=== PATIENT | female | born 1975 | race Caucasian/White ===

== ENCOUNTER 2020-10-19 09:48 | Day surgery (SDC) | payer BC ==
[~2020-10-19 09:48] MED LIST: Albuterol 0.083% 2.5 MG/3 ML Neb Soln NEB PRN; HYDROmorphone 1 MG/ML Syringe IVPUSH PRN; Lidocaine 2% 100 MG/5 ML Syringe ONE; Metoclopramide 10 MG/2 ML SDV IVPUSH PRN; Morphine 2 MG/ML SYRINGE IVPUSH PRN; Naloxone 0.4 MG/ML Syringe IVPUSH PRN; Ondansetron 4 MG/2 ML SDV IVPUSH PRN; Ondansetron 4 MG/2 ML SDV ONE; Sodium Chloride 0.9% 10 ML SDV IV PRN; Sodium Chloride 0.9% 10 ML Syringe FLUSH PRN; Sodium Chloride 0.9% 2.5 ML Syringe FLUSH PRN; fentaNYL 100 MCG/2 ML SDV IVPUSH PRN; fentaNYL 100 MCG/2 ML SDV ONE
[2020-10-19] MEDS ORDERED: propofoL 100 ML ONE (09:54)
[2020-10-19 10:59] LABS: CARBON DIOXIDE,CO2 28.6 mmol/L (21.0-32.0); POTASSIUM,K 4.2 mmol/L (3.5-5.1)
[2020-10-19] MEDS ORDERED: Scopolamine 1.5 MG Transdermal Patch ONE (11:19)
[2020-10-19] MEDS ORDERED: Dexamethasone 4 MG/ML 5 ML MDV ONE (13:58)
[2020-10-19] MEDS ORDERED: Ketorolac 30 MG/ML SDV ONE (14:22)
[2020-10-19] MEDS ORDERED: Acetaminophen/oxyCODONE 325-5 MG Tab PO PRN (14:59)
--- NOTE | 2020-10-19 15:08 | PCM.POSTAN ---
POST ANESTHESIA ASSESSMENT - MENTAL STATUS Mental Status: Alert, Oriented - VITAL SIGNS Vital Signs: Last Vital Signs Temp 97.9 F 10/19/20 11:22 Pulse 75 10/19/20 11:22 Resp 16 10/19/20 11:22 BP 140/80 10/19/20 11:22 Pulse Ox 100 10/19/20 11:22 - RESPIRATORY Respiratory Status: Respiratory Rate WNL, Airway Patent, O2 Saturation Stable - CARDIOVASCULAR CV Status: Pulse Rate WNL, Blood Pressure Stable - GASTROINTESTINAL GI Status: No Symptoms - POST OP HYDRATION Hydration Status: Adequate & Stable
--- NOTE | 2020-10-19 15:08 | PCM.PREANE ---
Preanesthetic Assessment - Anesthesia/Transfusion/Family Hx Anesthesia History: Prior Anesthesia Without Reaction Transfusion History: No Prior Transfusion(s) - Review of Systems General: No Symptoms Pulmonary: No Symptoms Cardiovascular: No Symptoms Gastrointestinal: No Symptoms Neurological: No Symptoms Other: Reports: None - Physical Assessment NPO Status Date: 10/19/20 NPO Status Time: 00:00 Vital Signs: Last Vital Signs Temp 97.9 F 10/19/20 11:22 Pulse 75 10/19/20 11:22 Resp 16 10/19/20 11:22 BP 140/80 10/19/20 11:22 Pulse Ox 100 10/19/20 11:22 Height: 5 ft 2 in Weight: 173 lb ASA Class: 3 Mental Status: Alert & Oriented x3 Airway Class: Mallampati = 2 Dentition: Reports: Normal Dentition ROM/Head Extension: Full Lungs: Clear to Auscultation, Normal Respiratory Effort Cardiovascular: Regular Rate, Regular Rhythm - Lab Values: Laboratory Last Values WBC 6.47 K/uL (4.0-11.0) 10/19/20 10:08 RBC 4.50 M/uL (4.30-5.90) 10/19/20 10:08 Hgb 12.7 g/dL (12.0-16.0) 10/19/20 10:08 Hct 38.2 % (36.0-46.0) 10/19/20 10:08 MCV 84.9 fL (80.0-98.0) 10/19/20 10:08 MCH 28.2 pg (27.0-32.0) 10/19/20 10:08 MCHC 33.2 g/dL (31.0-37.0) 10/19/20 10:08 RDW Std Deviation 42.2 fl (28.0-62.0) 10/19/20 10:08 RDW Coeff of Shailesh 14 % (11.0-15.0) 10/19/20 10:08 Plt Count 315 K/uL (150-400) 10/19/20 10:08 MPV 8.70 fL (7.40-12.00) 10/19/20 10:08 Nucleated RBC % 0.0 /100WBC 10/19/20 10:08 Nucleated RBCs # 0 K/uL 10/19/20 10:08 Sodium 139 mmol/L (136-145) 10/19/20 10:08 Potassium 4.2 mmol/L (3.5-5.1) 10/19/20 10:08 Chloride 104 mmol/L (98-107) 10/19/20 10:08 Carbon Dioxide 28.6 mmol/L (21.0-32.0) 10/19/20 10:08 BUN 15 mg/dL (7.0-18.0) 10/19/20 10:08 Creatinine 1.1 mg/dL (0.6-1.0) H 10/19/20 10:08 Est Cr Clr Drug Dosing 50.00 mL/min 10/19/20 10:08 Estimated GFR (MDRD) 53.2 ml/min 10/19/20 10:08 Glucose 96 mg/dL (74-106) 10/19/20 10:08 Calcium 8.2 mg/dL (8.5-10.1) L 10/19/20 10:08 Urine HCG, Qual NEGATIVE (NEGATIVE) 10/19/20 10:15 SARS-CoV-2 RNA (DENA) NEGATIVE (NEGATIVE) 10/19/20 09:55 Blood Type A POSITIVE 10/19/20 10:13 Antibody Screen NEGATIVE 10/19/20 10:13 - Allergies Allergies/Adverse Reactions: Allergies Allergy/AdvReac Type Severity Reaction Status Date / Time clindamycin Allergy Rash Verified 10/15/20 08:42 sulfamethoxazole Allergy Rash Verified 10/15/20 08:42 [From Bactrim] trimethoprim [From Bactrim] Allergy Rash Verified 10/15/20 08:42 - Acknowledgements Anesthesia Type Planned: General Anesthesia Pt an Appropriate Candidate for the Planned Anesthesia: Yes Alternatives and Risks of Anesthesia Discussed w Pt/Guardian: Yes Pt/Guardian Understands and Agrees with Anesthesia Plan: Yes PreAnesthesia Questionnaire HEENT History: Reports: Other (See Below) Other HEENT History: wears glasses Cardiovascular History: Reports: Hypertension Respiratory History: Reports: None Gastrointestinal History: Reports: GERD Genitourinary History: Reports: UTI, Recurrent [employer] History: Reports: Dysfunctional Uterine Bleeding, Musculoskeletal History: Reports: None Neurological History: Reports: Migraines Psychiatric History: Reports: Anxiety, Depression Endocrine/Metabolic History: Reports: Obesity/BMI 30+ Hematologic History: Reports: None Immunologic History: Reports: None Oncologic (Cancer) History: Reports: None Dermatologic History: Reports: None - Past Surgical History Head Surgeries/Procedures: Reports: None HEENT Surgical History: Reports: Cataract Surgery Cardiovascular Surgical History: Reports: None Respiratory Surgical History: Reports: None GI Surgical History: Reports: Cholecystectomy Female Surgical History: Reports: Tubal Ligation Endocrine Surgical History: Reports: None Neurological Surgical History: Reports: None Musculoskeletal Surgical History: Reports: None Oncologic Surgical History: Reports: None Dermatological Surgical History: Reports: None - SUBSTANCE USE Tobacco Use Status *Q: Never Tobacco User - HOME MEDS Home Medications: Home Meds Calcium Carbonate [Tums] 1 tab.chew CHEW ASDIRECTED PRN 10/15/20 [History] Olmesartan [Benicar] 10 mg PO DAILY 10/15/20 [History] - CURRENT (IN HOUSE) MEDS Current Meds: Current Medications Albuterol (Albuterol 0.083% 2.5 Mg/3 Ml Neb Soln) 2.5 mg NEB ONETIME PRN PRN Reason: Wheezing Droperidol (Droperidol 5 Mg/2 Ml Sdv) 0.625 mg IVPUSH ONETIME PRN PRN Reason: Nausea/Vomiting Fentanyl (Fentanyl 100 Mcg/2 Ml Sdv) 50 mcg IVPUSH Q5M PRN PRN Reason: Pain (mild 1-3) Hydromorphone HCl (Hydromorphone 1 Mg/Ml Syringe) 1 mg IVPUSH Q10M PRN PRN Reason: Pain (moderate 4-6) Metoclopramide HCl (Metoclopramide 10 Mg/2 Ml Sdv) 10 mg IVPUSH ONETIME PRN PRN Reason: Nausea/Vomiting Morphine Sulfate (Morphine 2 Mg/Ml Syringe) 2 mg IVPUSH Q10M PRN PRN Reason: Pain (severe 7-10) Naloxone HCl (Naloxone 0.4 Mg/Ml Syringe) 0.1 mg IVPUSH ASDIRECTED PRN PRN Reason: Respiratory Depression Ondansetron HCl (Ondansetron 4 Mg/2 Ml Sdv) 4 mg IVPUSH ONETIME PRN PRN Reason: Nausea/Vomiting Oxycodone/Acetaminophen (Acetaminophen/Oxycodone 325-5 Mg Tab) 1 tab PO Q4H PRN PRN Reason: Pain Sodium Chloride (Sodium Chloride 0.9% 10 Ml Syringe) 10 ml FLUSH ASDIRECTED PRN PRN Reason: Keep Vein Open Sodium Chloride (Sodium Chloride 0.9% 2.5 Ml Syringe) 2.5 ml FLUSH ASDIRECTED PRN PRN Reason: Keep Vein Open Sodium Chloride (Sodium Chloride 0.9% 10 Ml Sdv) 10 ml IV ASDIRECTED PRN PRN Reason: IV Use Discontinued Medications Dexamethasone (Dexamethasone 4 Mg/Ml 5 Ml Mdv) Confirm Administered Dose 20 mg .ROUTE .[employer] ONE Stop: 10/19/20 13:59 Fentanyl (Fentanyl 100 Mcg/2 Ml Sdv) Confirm Administered Dose 100 mcg .ROUTE .[employer] ONE Stop: 10/19/20 09:06 Propofol (Diprivan 100 Ml) Confirm Administered Dose 100 mls @ as directed .ROUTE .[employer] ONE Stop: 10/19/20 09:55 Ketorolac Tromethamine (Ketorolac 30 Mg/Ml Sdv) Confirm Administered Dose 30 mg .ROUTE .[employer] ONE Stop: 10/19/20 14:23 Lidocaine HCl (Lidocaine 2% 100 Mg/5 Ml Syringe) Confirm Administered Dose 100 mg .ROUTE .[employer] ONE Stop: 10/19/20 09:05 Miscellaneous Medication (Phenylephrine Hcl In 0.9% Nacl 1 Mg/10 Ml Syringe) Confirm Administered Dose 1 mg .ROUTE .[employer] ONE Stop: 10/19/20 14:36 Ondansetron HCl (Ondansetron 4 Mg/2 Ml Sdv) Confirm Administered Dose 4 mg .ROUTE .[employer] ONE Stop: 10/19/20 09:05 Ondansetron HCl (Ondansetron 4 Mg/2 Ml Sdv) Confirm Administered Dose 4 mg .ROUTE .[employer] ONE Stop: 10/19/20 09:05 Scopolamine (Scopolamine 1.5 Mg Transdermal Patch) Confirm Administered Dose 1.5 mg .ROUTE .[employer] ONE Stop: 10/19/20 11:20
--- NOTE | 2020-10-19 15:09 | PCM48HPAN ---
Post Anesthesia Note - EVALUATION WITHIN 48HRS OF ANESTHETIC Vital Signs in Normal Range: Yes Patient Participated in Evaluation: Yes Respiratory Function Stable: Yes Airway Patent: Yes Cardiovascular Function Stable: Yes Hydration Status Stable: Yes Pain Control Satisfactory: Yes Nausea and Vomiting Control Satisfactory: Yes Mental Status Recovered: Yes Vital Signs: Last Vital Signs Temp 97.9 F 10/19/20 11:22 Pulse 75 10/19/20 11:22 Resp 16 10/19/20 11:22 BP 140/80 10/19/20 11:22 Pulse Ox 100 10/19/20 11:22
--- NOTE | 2020-10-20 00:55 | OR ---
SURGEON: Juan Oakes MD DATE OF PROCEDURE: 10/19/2020 INDICATION FOR PROCEDURE: A 45-year-old, with menorrhagia, presenting for endometrial ablation. The patient has regular monthly cycles that are heavy and prolonged. She had a tubal ligation for sterilization in the past and does not tolerate hormonal medications due to side effects. She had a normal pelvic ultrasound and endometrial biopsy. After discussion of options, she desired to proceed with endometrial ablation. PREOPERATIVE DIAGNOSIS: Menorrhagia. POSTOPERATIVE DIAGNOSIS: Menorrhagia. PROCEDURE PERFORMED: Hysteroscopy, dilation and curettage, Fransisca endometrial ablation. ANESTHESIOLOGIST: Dr. Yasmani Escalera. ANESTHESIA: General anesthesia. FINDINGS: Eight-week size uterus, anteverted and mobile. Normal-appearing cervix and vagina. The endometrial cavity was normal appearing without any abnormal configuration, polyps or fibroids. There was a malfunction with Fransisca device which stopped prior to completing the ablation and was replaced twice during the procedure. DESCRIPTION OF PROCEDURE: The patient was consented and the risks of the procedure were discussed including bleeding, infection, DVTs, and injury to surrounding organs including bladder, bowel, and ureters. Questions were answered, and consent was signed. The patient was brought to the operating room and placed under general anesthesia. She was placed in dorsal lithotomy position with her legs supported using stirrups. She was prepped with Betadine and draped in a sterile fashion. A bimanual exam was done and the uterus found to be eight-week size, anteverted, and mobile. No adnexal masses were felt. The cervix and vagina were grossly normal appearing with no lesions. A bivalve speculum was placed to visualize the cervix. The anterior lip of the cervix was grasped with an Allis clamp. The cervix was dilated to 5 mm with Hegar dilators. The hysteroscope was placed in the uterine cavity under direct visualization with normal saline as distention medium. There was a normal amount of endometrial tissue lining the uterine cavity. Both tubal ostia were visualized. The uterine cavity was normal appearing without any abnormal configuration, polyps or fibroid. The hysteroscope was removed. A curettage was performed, and endometrial curettings were obtained by carefully scraping the entire endometrial cavity. The curettings was placed on a Telfa pad and sent to Pathology for evaluation. A uterine sound was inserted and measured 9 cm. The cervix was measured to be 4 cm, cavity length of 5 cm was set on the Fransisca device. The Fransisca device was inserted to the fundus, released and retracted by 1 cm until it was firmly fitted to the cavity. The cervical balloon was insufflated. Initially, there was leakage of CO2 gas from the cervix due to the cervix os being very loose. The balloon was insufflated with additional 3 mL of air, and the cavity testing was confirmed to be completed with no leakage of gas. The foot pedal was pressed to start the ablation. The ablation was started for about 12 seconds, however, it stopped due to an error on the machine. Therefore, the device was removed and a new device was placed with the similar issue. The third time the device was placed, an Allis clamp was used to clamp down around the cervix to prevent any leakage of gas. Cavity testing was again completed with no leakage of gas. At this time, I was able to complete the ablation. The hysteroscope was then reinserted, and the entire cavity was found to be adequately ablated. The Allis clamps were then removed, and the cervix was hemostatic. The speculum was removed. The patient was cleaned and taken off dorsal lithotomy position. She was awakened from anesthesia without difficulty and brought to the recovery room. DANY FERNÁNDEZ /[id number] MTDD
== END 2020-10-19 16:33 | disposition home or self-care (01) ==
LOC: MW.SDS 09:48
PROVIDERS: ATTEND Obstetrics & Gynecology
DX: N92.0 Excessive and frequent menstruation with regular cycle (principal); N85.8 Other specified noninflammatory disorders of uterus; Z01.812 Encounter for preprocedural laboratory examination; Z20.822 Contact with and (suspected) exposure to COVID-19
CPT/HCPCS: 36415; 58563; 80048; 81025; 85027; 86850; 86900; 86901; 87635; 88305; A9270; J1100; J1885; J2370; J2405; J2704; J3010; 00952; U0002